=== PATIENT | male | born 1975 | race African-American/Black ===

== ENCOUNTER 2019-01-21 16:05 | Emergency (ER) | payer SELFPAY ==
[~2019-01-21] VITALS: Ht 175.3 cm; Wt 90.8 kg
[2019-01-21 16:19] VITALS: Ht 175.3 cm; Wt 90.8 kg
[2019-01-21 16:48] VITALS: BP 140/82
== END 2019-01-21 16:48 | disposition home or self-care (01) ==
LOC: ED 16:05
DX: K08.89 Other specified disorders of teeth and supporting structures (principal)